=== PATIENT | male | born 1975 | race Caucasian/White ===

== ENCOUNTER 2023-12-04 11:55 | Emergency (ER) | payer OTHER ==
[~2023-12-04] VITALS: Ht 170.2 cm; Wt 77.1 kg
[2023-12-04 11:59] VITALS: BP 145/90; PULSE 130; RESP 20; TEMP 98.2; O2SAT 98
== END 2023-12-04 11:59 | disposition left against medical advice (07) ==
LOC: MED 11:55
DX: F99 Mental disorder, not otherwise specified (principal); Z53.21 Procedure and treatment not carried out due to patient leaving prior to being seen by health care provider
CPT/HCPCS: 99281